=== PATIENT | female | born 1930 | race Asian ===

== ENCOUNTER 2018-11-18 18:13 | Inpatient (IN) | payer MEDICARE, OTHER ==
[~2018-11-18] VITALS: Ht 154.9 cm; Wt 49.9 kg
[2018-11-18] MEDS ORDERED: FOLI1TAB16 PO (18:24)
[2018-11-18] MEDS ORDERED: VITAMIN D3 (18:24)
[2018-11-18] MEDS ORDERED: ASPI81TA31 PO (18:24)
[2018-11-18] MEDS ORDERED: AMLO2.5T2 PO (18:24)
[2018-11-18] MEDS ORDERED: ROSU5TAB PO (18:24)
[2018-11-18] MEDS ORDERED: HYDR200T4 PO (18:24)
--- NOTE | 2018-11-18 19:10 | NUR ---
Patient here for med clearance from [facility]. Patient is GD with depression. Fall precautions implemented per protocol. Side rails up x2, bed in lowest position. Security sitting at bedside.
--- NOTE | 2018-11-18 19:32 | NUR ---
Report given to MHU. Patient in bed at lowest position. NAD.
[2018-11-18] MEDS ORDERED: MAGNESIUM HYDROXIDE 30 ML LIQUID UDC PO PRN (20:00)
[2018-11-18] MEDS ORDERED: MAG HYDROX/AL HYDROX/SIMETH 30 ML LIQUID UDC PO PRN (20:00)
[2018-11-18] MEDS ORDERED: ACETAMINOPHEN 325 MG TABLET PO PRN (20:00)
[2018-11-18] MEDS ORDERED: TEMAZEPAM 7.5 MG CAPSULE PO PRN (20:00)
--- NOTE | 2018-11-18 20:05 | NUR ---
Patient transfered to MHU in stable condition.
[2018-11-18 21:23] VITALS: BP 153/83
[2018-11-18] MEDS: CLONAZEPAM 0.5 MG TABLET PO PRN (21:39)
--- NOTE | 2018-11-18 22:00 | NUR ---
Pt arrived in the unit at 2014 via wheelchair accompanied by a nurse from ER. Pt is Mandarin speaking, speaks little bit of Slovenian. Pt crying and raising voice, stated that she does not understand the reason why she is admitted here. Used Standardized Safety for tour coordinator, explained the reason why she is here, protocols, and pertinent assessments. Pt continued to be upset. Unable to reach family after 3 tries of calling. Brit, pt's daughter, called back and was also upset and surprised that the pt is here. Pt's daughter expressed that she wants the pt to be discharge now stating that there was a misunderstanding, explained protocols and condition of pt. Pt requested for food and was given, and also for the heater to be turned on and was adjusted. Paged Evelyn GRIFFIN for medication, awaiting call back. Pertinent assessment done. Pt is now in bed. On isolation for positive influenza A. Safety measures maintained. Will continue to monitor.
[2018-11-19] MEDS: CLONAZEPAM 0.5 MG TABLET PO PRN (04:52)
--- NOTE | 2018-11-19 04:52 | NUR ---
klonopin 0.5 mg given for severe agitation.
[2018-11-19] MEDS ORDERED: LORAZEPAM 2 MG/1 ML VIAL IM ONE (06:30)
[2018-11-19] MEDS ORDERED: HALOPERIDOL LACTATE 5 MG/1 ML VIAL IM ONE (06:30)
--- NOTE | 2018-11-19 06:36 | NUR ---
NSG/GPS Patient visible, pacing hallway with increased agitation, increased anxiety, prn for anxiety administered with ineffective outcome, patient continued to escalate. Observed yelling at nursing station asking "why", "I am an [place] citizen". Nursing staff utilized the translating device available to patients for mandarin translation however despite the multiple attempts nursing made to explain the hold, and reason for admission through the environmental field professional patient refused to listen and continued to escalate. Patient taken into television room, attempts to distract made by staff ineffective, patient once again observed at nursing station, angry, yelling, appeared to be a threat towards staff, violent and refusing to comply. Psychiatrist notified, IM x one administered as ordered. Will monitor for patient safety as well as observe for adverse reactions. Last observed awake, pacing on unit.
[2018-11-19 06:50] VITALS: BP 110/60
[2018-11-19 07:30] VITALS: BP 89/53
[2018-11-19] MEDS ORDERED: Medication Not On Formulary EA (Rosuvastatin Calcium (Crestor) 5 MG) PO SCH (09:00)
[2018-11-19] MEDS: ASPIRIN 81 MG TAB.CHEW PO SCH (09:45)
[2018-11-19] MEDS: FOLIC ACID 1 MG TABLET PO SCH (09:45)
[2018-11-19] MEDS: AMLODIPINE 2.5 MG TABLET PO SCH (09:46)
[2018-11-19] MEDS: HYDROXYCHLOROQUINE SULFATE 200 MG TABLET PO SCH (09:46)
[2018-11-19] MEDS ORDERED: INSULIN REGULAR, HUMAN 300 UNIT/3 ML VIAL SQ PRN (11:30)
[2018-11-19] MEDS ORDERED: DEXTROSE 50% 50 ML DISP.SYRIN IV PRN (11:30)
[2018-11-19 11:41] LABS: BASOPHILS % (AUTO) 0.6 % (0.0-2.0); EOSINOPHILS # (AUTO) 0.1 K/uL (0.0-0.7); EOSINOPHILS % (AUTO) 1.7 % (0.0-7.0); HEMATOCRIT 30.8 % (31.2-41.9); HEMOGLOBIN 10.4 g/dL (10.9-14.3); LYMPHOCYTES # (AUTO) 1.3 K/uL (20.0-40.0); LYMPHOCYTES % (AUTO) 22.6 % (20.5-51.5); MEAN CORPUSCULAR HEMOGLOBIN 31.2 uug (24.7-32.8); MEAN CORPUSCULAR HGB CONC 34 g/dL (32.3-35.6); MONOCYTES # (AUTO) 0.5 K/uL (2.0-10.0); MONOCYTES % (AUTO) 8.3 % (0.0-11.0); NEUTROPHILS % (AUTO) 66.8 % (38.5-71.5); PLATELET COUNT (AUTO) 123 K/uL (179-408); RED BLOOD CELL COUNT(AUTO) 3.34 MIL/uL (3.63-4.92); WHITE BLOOD COUNT (AUTO) 5.9 K/uL (3.8-11.8)
[2018-11-19 11:50] LABS: ALANINE AMINOTRANSFERASE 23 U/L (14-59); ALKALINE PHOSPHATASE 51 U/L (50-136); ASPARTATE AMINOTRANSFERASE 33 U/L (15-37); BILIRUBIN,TOTAL 0.3 mg/dL (0.2-1.0); CARBON DIOXIDE 22 mmol/L (21-32); CHLORIDE 108 mmol/L (98-107); CREATININE 2.5 mg/dL (0.6-1.3); GLUCOSE 105 mg/dL (74-106); MAGNESIUM 2.9 mg/dL (1.8-2.4); PHOSPHOROUS 4.9 mg/dL (2.5-4.9); POTASSIUM 4.9 mmol/L (3.5-5.1); TOTAL PROTEIN, SERUM 7.1 g/dL (6.4-8.2); UREA NITROGEN, BLOOD 50 mg/dL (7-18)
[2018-11-19] MEDS ORDERED: QUETIAPINE FUMARATE 25 MG TABLET PO PRN (12:00)
[2018-11-19 12:17] LABS: THYROID STIMULATING HORMONE 6.737 mIU/mL (0.358-3.740)
[2018-11-19] MEDS: BLOOD SUGAR DIAGNOSTIC 1 EACH STRIP VI SCH ×3 (12:33→21:30)
--- NOTE | 2018-11-19 13:34 | NUR ---
Discharge planning: Patient is a 88 year old female placed on a 5150 hold for grave disability. According to the hold, the patient had expressed to nurses at [facility] that she felt "hopeless" and "depressed" with "no reason to live". [facility] further states that patient lives with her at home and has no assistance from daughter or family. general worker observed patient sitting in bryna-chair in the U hallway with mask on due to influenza. Patient appeared calm, but looked tired. general worker attempted to speak with patient, but patient deferred conversation to her daughter, Brit [[phone]] as patient is Mandarin-speaking only. general worker called and spoke with Brit, patient daughter. According to Brit, her mother was brought to [facility] for flu-like symptoms. Brit states that patient was very weak as she had not eaten in 1 day and was cold at the hospital. Brit states that patient has difficulty expressing herself in Vietnamese as she is Mandarin-speaking only. Brit states that patient told MD at [facility] that she "felt like she was going to " was only focused on going home. Per Brit, it is common in [place] culture to express self this way. Brit further states that she is very involved with her parents and brings them food every other day and takes them to MD appointments. Brit states that [facility] did not call her to inform her that patient had been placed on a hold and this upset her. Brit disagrees with [facility] and states that her mother has no psychiatric history and has never had any depression or suicidality. general worker received report from RN on U that patient has made no suicidal statements and has not appeared to be experiencing hallucinations. general worker consulted with psychiatrist, Dr. Garcia, who states he will discharge patient tomorrow, November 20, 2018, back to her home with daughter. general worker informed patient daughter, Brit, of discharge who was agreeable. Per Brit, patient has a nephrology appointment scheduled for Thursday, November, 2018 at 11;00am to receive IV medications that she gets every 4 months. Patient daughter very involved and supportive of patient and has agreed to set-up a follow-up appointment with patient PCP, Dr. Rose [[phone]]. general worker will provide patient will additional resources as well.
--- NOTE | 2018-11-19 14:20 | NUR ---
ALMOND PASTE MIXERAna Maria notified regarding abnormal chemistry and CBC result with no new order at this time.
[2018-11-19 16:00] VITALS: BP 103/44
--- NOTE | 2018-11-19 16:30 | NUR ---
THURSDAY DC NOTE: Patient will be discharged back to her home [[address], [place] [address]] with her . Transportation will be provided by [employer] [[phone]], at 11:00am. Transportation was arranged by Krystal, staff member, at [facility] [employer]. Patient daughter, Brit [[phone]] states she will be waiting at patient home and ready to receive her. Brit is agreeable with discharge plan. Patient is alert and oriented x2-3, denies any SI/HI, and is able to plan for self-care. Patient was briefed on discharge and aware and agreeable with plan. Patient will follow-up with primary care physician, Dr. Clement Rose [[address], [place] [address]; ] on Thursday, November 22, 2018 at 4:30pm. Per patient daughter, patient will also follow-up with her electronics technician apprentice on Thursday, November 22, 2018 at 11:00am.Patient currently has no outpatient psychiatrist so she has been provided with a list of Medicare-accepting psychiatrists in the [place], [place]. If patient is in need of psychiatric follow-up sooner, she has been provided with a referral to [facility] [ [place] [address]; ] where patient can walk-in for appointment Thursday thru Thursday anytime between 8:00pm-5:00pm. vegetable worker has also provided patient with outpatient mental health resources to [facility] Crisis Line , Lauren White , and the National Suicide Prevention Lifeline . vegetable worker has also provided patient with a [employer] [ Toll Free: ; www.[employer].org].
[2018-11-19 20:00] VITALS: BP 137/62
[2018-11-19] MEDS ORDERED: QUETIAPINE FUMARATE 25 MG TABLET PO SCH (21:00)
[2018-11-19] MEDS ORDERED: ATORVASTATIN 10 MG TABLET PO SCH (21:00)
[2018-11-19] MEDS: OSELTAMIVIR PHOSPHATE 75 MG CAPSULE PO SCH (21:44)
[2018-11-19] MEDS ORDERED: OSELTAMIVIR PHOSPHATE 75 MG CAPSULE ONE (21:45)
[2018-11-20] MEDS: BLOOD SUGAR DIAGNOSTIC 1 EACH STRIP VI SCH (06:30)
[2018-11-20] MEDS ORDERED: LEVOTHYROXINE SODIUM 25 MCG TABLET PO SCH (07:00)
[2018-11-20 07:30] VITALS: BP 141/65
[2018-11-20] MEDS: HYDROXYCHLOROQUINE SULFATE 200 MG TABLET PO SCH (08:58)
[2018-11-20] MEDS: ASPIRIN 81 MG TAB.CHEW PO SCH (08:58)
[2018-11-20] MEDS: FOLIC ACID 1 MG TABLET PO SCH (08:58)
[2018-11-20] MEDS: OSELTAMIVIR PHOSPHATE 75 MG CAPSULE PO SCH (08:58)
[2018-11-20 08:59] VITALS: BP 141/65
[2018-11-20] MEDS: AMLODIPINE 2.5 MG TABLET PO SCH (08:59)
--- NOTE | 2018-11-20 11:04 | NUR ---
GPS: Nursing Notes: Discharge Notes: Patient is awake and responding to her name, cooperative with nursing care, compliant with her medications, amabulatory, self care, needs minimal assistance with ADL's, denies any SI/HI, denies any AH/VH, denies any pain or discomfort, denies any SOB, discharge home with her daughter, Brit at [address], [place] [address], picked up by [employer] , team driver's name - Elan, took all her belongings with her. Patient will follow-up with primary care physician, Dr. Clement Rose [[address], [place] [address]; ] on Thursday, November 22, 2018 at 4:30pm. Per patient daughter, patient will also follow-up with her ignition specialist on Thursday, November 22, 2018 at 11:00am.Patient currently has no outpatient psychiatrist so she has been provided with a list of Medicare-accepting psychiatrists in the [place], [place]. If patient is in need of psychiatric follow-up sooner, she has been provided with a referral to [facility] [ [place] [address]; ] where patient can walk-in for appointment Thursday thru Thursday anytime between 8:00pm-5:00pm. health care social worker has also provided patient with outpatient mental health resources to [facility] Crisis Line , Lauren White , and the National Suicide Prevention Lifeline . health care social worker has also provided patient with a [employer] [ Toll Free: ; www.[email or web address]].
== END 2018-11-20 11:04 | disposition home or self-care (01) | DRG 885 ==
LOC: ER 18:16 → GPS 19:52
PROVIDERS: ADMIT Psychiatry & Neurology Psychiatry; ATTEND Nurse Practitioner Acute Care
DX: F29 Unspecified psychosis not due to a substance or known physiological condition (principal); E11.65 Type 2 diabetes mellitus with hyperglycemia; M06.9 Rheumatoid arthritis, unspecified; J10.1 Influenza due to other identified influenza virus with other respiratory manifestations; I10 Essential (primary) hypertension; D53.9 Nutritional anemia, unspecified; Z79.82 Long term (current) use of aspirin
CPT/HCPCS: 36415; 71045; 83735; 84100; 84443; 85025; A4663; J1630; J1815; J2060